=== PATIENT | female | born 1985 | race Caucasian/White ===

== ENCOUNTER → 2017-01-23 | Outpatient (CLI) | payer BC | LOC: SP 09:16 | PROVIDERS: ATTEND Family Medicine | DX: M79.661 Pain in right lower leg (principal) | CPT/HCPCS: 93971 ==

== ENCOUNTER 2020-04-26 17:45 | Emergency (ER) | payer BC ==
[2020-04-26] MEDS ORDERED: ACETAMINOPHEN 325 MG TABLET PO ONE ×2 (18:32→23:38)
--- NOTE | 2020-04-26 18:34 | ER Document Report ---
ED Medical Screen (RME) - General Chief Complaint: Dog Bite Stated Complaint: DOG BITE Time Seen by Provider: 04/26/20 18:28 Mode of Arrival: Ambulatory Information source: Patient Notes: HPI; 34-year-old female past medical history significant for hypertension diabetes presents to the emergency room with multiple puncture wounds to her bilateral forearms. States she went to take her dog outside when the neighbors dog started coming towards them. She attempted to grab her dog to keep him from going after the neighbors dog when her dog bit her on both of her forearms sustaining multiple puncture wounds. Bleeding is controlled. Dog's vaccines up-to-date. Patient's tetanus is up-to-date. PE: Alert and oriented x3. Moderate distress noted. There are multiple puncture wounds with ecchymosis noted to the bilateral forearms. Bleeding is controlled. Radial pulses bilaterally are intact. I have greeted and performed a rapid initial assessment of this patient. A comprehensive ED assessment and evaluation of the patient, analysis of test results and completion of the medical decision making process will be conducted by additional ED providers. I have specifically instructed the patient or family members with the patient to immediately return to any nursing staff should anything change in the patient's condition or with their chief complaint. TRAVEL OUTSIDE OF THE [place] IN LAST 30 DAYS: No - Related Data Allergies/Adverse Reactions: No Known Allergies Allergy (Verified 11/01/13 03:23) Home Medications: lisinopril. HTZ. metformin. omeprazole. welbutrin Past Medical History - Immunizations Hx Diphtheria, Pertussis, Tetanus Vaccination: Yes Physical Exam - Vital signs Vitals: Temp Pulse Resp BP Pulse Ox 98.4 F 119 H 16 143/109 H 97 04/26/20 17:50 04/26/20 17:50 04/26/20 17:50 04/26/20 17:50 04/26/20 17:50 Course - Vital Signs Vital signs: Temp Pulse Resp BP Pulse Ox 98.4 F 119 H 16 143/109 H 97 04/26/20 18:22 04/26/20 17:50 04/26/20 17:50 04/26/20 17:50 04/26/20 17:50
--- NOTE | 2020-04-26 19:25 | RADIOLOGY REPORT (SQ) ---
EXAM DESCRIPTION: FOREARM BILATERAL 2 VIEWS IMAGES COMPLETED DATE/TIME: 04/26/2020 5:59 pm REASON FOR STUDY: injury/pain COMPARISON: None. NUMBER OF VIEWS: Four views. TECHNIQUE: Two radiographic images acquired of the right and left forearm, including elbow and wrist in at least one projection. LIMITATIONS: None. FINDINGS: MINERALIZATION: Normal. BONES: No acute fracture. No worrisome bone lesions. SOFT TISSUES: No obvious swelling or foreign body. OTHER: No other significant finding. IMPRESSION: No radiographic abnormality of the forearms. TECHNICAL DOCUMENTATION: JOB ID: [id number] 2010 [employer]- All Rights Reserved Reading location - IP/workstation name: [email or web address]
[2020-04-26] MEDS ORDERED: IBUPROFEN 600 MG TABLET PO ONE (23:38)
[2020-04-26] MEDS ORDERED: AMOXICILLIN TR/POT CLAVULANATE 875-125 MG TAB PO ONE (23:38)
--- NOTE | 2020-04-26 23:42 | ER Document Report ---
HPI - HPI Time Seen by Provider: 04/26/20 18:28 Pain Level: 3 Context: Patient is a 34-year-old female who presents emergency department with a chief complaint of a dog bite. Patient's dog ended up biting her tonight. Patient's dog is a lab mix. Patient's dog is up-to-date on its immunizations. Patient is up-to-date on their immunizations. Patient states that she does have some tingling, but states it might be due to the pain. She has not received the Tylenol from triage. - ROS Systems Reviewed and Negative: Yes All other systems reviewed and negative - CONSTITUTIONAL Constitutional: DENIES: Fever, Chills - REPRODUCTIVE Reproductive: DENIES: : - MUSCULOSKELETAL Musculoskeletal: REPORTS: Extremity pain - bilateral forearms - DERM Skin Problems: Puncture Wound - Bilateral forearms, Bruise - bilateral forearms Past Medical History - General Information source: Patient - Social History Smoking Status: Former Smoker Family History: DM, Hypertension Patient has homicidal ideation: No - Immunizations Hx Diphtheria, Pertussis, Tetanus Vaccination: Yes Vertical Provider Document - CONSTITUTIONAL Agree With Documented VS: Yes Exam Limitations: No Limitations General Appearance: No Apparent Distress - INFECTION CONTROL TRAVEL OUTSIDE OF THE [place] IN LAST 30 DAYS: No - HEENT HEENT: Atraumatic, Normocephalic, PERRLA - RESPIRATORY Respiratory: No Respiratory Distress - CARDIOVASCULAR Cardiovascular: Tachycardia Pulses: Normal: Radial - MUSCULOSKELETAL/EXTREMETIES Musculoskeletal/Extremeties: FROM, Tender - Bilateral forearms, Eccymosis - Bilateral forearms and left upper arm - NEURO Level of Consciousness: Awake, Alert, Appropriate Motor/Sensory: No Motor Deficit, No Sensory Deficit - DERM Integumentary: Warm, Dry, Laceration - 1 cm to right forearm; 2 others to the left forearm Course - Re-evaluation Re-evalutation: 04/26/20 23:40 Patient has puncture wounds to her right and left forearm. She has some bruising noted to her left upper arm. X-ray is unremarkable. No bone involvement. Patient will start on Augmentin. We will also give her a dose of Tylenol and ibuprofen here in the emergency department. She will follow-up with her primary care provider. Follow-up precautions were given. Verbal discharge instructions were given to the patient. They verbalized understanding. They are stable for discharge. - Vital Signs Vital signs: Temp Pulse Resp BP Pulse Ox 98.4 F 119 H 16 143/109 H 97 04/26/20 18:22 04/26/20 17:50 04/26/20 17:50 04/26/20 17:50 04/26/20 17:50 Discharge - Discharge Clinical Impression: Dog bite Qualifiers: Encounter type: initial encounter Qualified Code(s): W54.0XXA - Bitten by dog, initial encounter Condition: Stable Disposition: HOME, SELF-CARE Additional Instructions: Please monitor very closely for any signs of infection from your dog bite including spreading redness from the area, pus from the wound, or worsening pain. Clean the area twice daily with soap and water and then apply topical antibiotic ointment. Please take all the antibiotics that you were prescribed until they are gone. Follow-up with your primary care physician as needed. Prescriptions: Amoxicillin/Potassium Clav [Augmentin 875-125 Tablet] 1 tab PO BID #14 tab Referrals: ALICIA SUN FNP [Primary Care Provider] - Follow up in 3-5 days
[2020-04-27 00:25] VITALS: BP 122/88
== END 2020-04-27 00:27 | disposition home or self-care (01) ==
LOC: ER 17:45
DX: S51.832A Puncture wound without foreign body of left forearm, initial encounter (principal); S51.831A Puncture wound without foreign body of right forearm, initial encounter; W54.0XXA Bitten by dog, initial encounter; Y92.009 Unspecified place in unspecified non-institutional (private) residence as the place of occurrence of the external cause; I10 Essential (primary) hypertension; E11.9 Type 2 diabetes mellitus without complications
CPT/HCPCS: 99283; 73090; J3490